=== PATIENT | female | born 1960 | race Caucasian/White ===

== ENCOUNTER 2017-03-24 17:43 | Emergency (ER) | payer OTHER ==
--- NOTE | 2017-03-24 18:15 | ED CLINICAL REPORT ---
Clinical Report - Physicians/Mid Levels [facility] [address] [place] [address] 03/24/2017 17:44 Patient: LIU RUBI Time Seen: 1800; upon arrival, initial patient contact, initial documentation, patient care assumed. Arrived- By private vehicle. Historian- patient. HISTORY OF PRESENT ILLNESS Chief Complaint: UPPER EXTREMITY PAIN. Severity is described as being severe. The quality is noted to be "pain" and similar to prior episodes. It is described as radiating to the right neck. This started about 2 - 3 months ago and is still present. It has been constant. Symptoms located in the area of the right shoulder and right arm. No chest pain, difficulty breathing, swelling, sensory loss or motor loss. No repetitive hand use at work. She has not had redness. Patient denies an injury. Similar symptoms previously: As bad. ( went to dr for issues about 2 mos ago, given pain meds and was told she had nerve issue, has appt on 04/05 to see specialist). Recent medical care: Not recently seen/assessed. REVIEW OF SYSTEMS The patient has had a headache. No abdominal pain. All systems otherwise negative, except as recorded above. PAST HISTORY See nurses notes. PROBLEMS: Migraine Headache. Hypothyroidism. Back Pain. --18:10 Madison Mcmillan RDina. ADDITIONAL SURGERIES: Ankle. Cholecystectomy. Oophorectomy. --18:10 Madison Mcmillan, R.N. SOCIAL HISTORY Never smoker. Regular alcohol use. No drug use. No recent travel. Is a local resident. FAMILY HISTORY Negative. ADDITIONAL NOTES The nursing notes have been reviewed with agreement regarding the chief complaint, HPI, ROS, PMH and patient medications and allergies. PHYSICAL EXAM Vital Signs: 03/24/2017 17:59 BP: 154/78. HR: 68. RR: 18. O2 saturation: 100%. Temp: 98.3 F. Pain level now: 07/24. Have been reviewed as normal and appear to be correct. Appearance: Alert. Oriented X3. No acute distress. Eyes: Pupils equal, round and reactive to light. Eyes normal inspection. Neck: Normal inspection. Neck supple. CVS: Normal heart rate and rhythm. Heart sounds normal. Respiratory: No respiratory distress. Breath sounds normal. Abdomen: Soft and nontender. No organomegaly. Back: Normal inspection. No tenderness. ROM normal. Skin: Skin intact. Skin warm and dry. Normal skin color. Normal skin turgor. Extremities: Upper extremities normal to inspection. Upper extremities exhibit normal ROM. Upper extremities nontender. No upper extremity edema. Extremities otherwise negative. Neuro: Oriented X 3. No motor deficit. No sensory deficit. PROGRESS AND PROCEDURES Course of Care: 18:18 03/24/17. pt has pamela for frequent large quantity of narcs, last rx 03/05 Oxycodone 5mg #90, see report for full details. Patient counseled in person regarding the patient's stable condition and diagnosis. Differential Diagnosis: I considered stress fracture, multiple myeloma, degenerative joint disease, arthritis, rheumatoid arthritis, septic, gout, pseudogout, tendonitis, myositis, fasciitis and bursitis as a possible cause of upper extremity pain in this patient. This is a partial list of diagnoses considered. (nerve impingement syndrome). Above considerations are based on history and physical exam. Differential diagnosis was discussed with patient. Disposition: Discharged home in good and improved condition (18:15). Condition: good and stable. CLINICAL IMPRESSION Upper extremity pain involving the right shoulder and right upper arm. Acute, poorly controlled headache. INSTRUCTIONS Warnings: GENERAL WARNINGS: Return or contact your physician immediately if your condition worsens or changes unexpectedly, if not improving as expected, or if other problems arise. Specifically return if problem worsens. Prescription Medications: Naproxen 500 mg tablets: take 1 orally every 12 hours as needed for pain. Dispense twenty (20). No refills. Medrol Dosepak: take according to package directions. Dispense one (1) dosepak. No refills. Substitution is permissible. Follow-up: Follow up with your doctor in about one week as scheduled. Summary of care provided to patient. Understanding of the discharge instructions verbalized by patient. (Electronically signed by Irina Gonzalez A.R.N.P. 03/24/2017 23:50)
--- NOTE | 2017-03-24 18:15 | ED ORDER SUMMARY ---
..... Patient: LIU RUBI OrderSheet [facility] VisitID: [id number] [address] [place] [address] 56y, F Registration Date/Time: 03/24/2017 ORDER SHEET Weight: 71.2 kg (stated) Allergies: Penicillin, morphine GENERAL ORDERS: MEDICATION ORDERS: Toradol IM 60 mg (NOW) (18:13 03/24/2017 HBivens A.R.N.P.) (Ack 18:15 CBradburn R.N.) (18:26 CBradburn R.N.) Benadryl IM 50 mg (NOW) (18:14 03/24/2017 HBivens A.R.N.P.) (Ack 18:15 CBradburn R.N.) (18:27 CBradburn R.N.) - (Reglan 10mg im stat) (18:14 03/24/2017 HBivens A.R.N.P.) (Ack 18:15 CBradburn R.N.) (18:27 CBradburn R.N.) IV FLUIDS: ORDER SHEET NOTES: [Electronically signed by Saira Arciniega R.N. (19:58 03/24/2017)] [Electronically signed by Irina Gonzalez A.R.N.P. (23:50 03/24/2017)] [Electronically locked/signed by Saira Arciniega R.N. (19:58 03/24/2017)]
--- NOTE | 2017-03-24 18:15 | ED ORDER SUMMARY ---
..... Patient: LIU RUBI OrderSheet [facility] VisitID: [id number] [address] [place] [address] 56y, F Registration Date/Time: 03/24/2017 ORDER SHEET Weight: 71.2 kg (stated) Allergies: Penicillin, morphine GENERAL ORDERS: MEDICATION ORDERS: Toradol IM 60 mg (NOW) (18:13 03/24/2017 HBivens A.R.N.P.) (Ack 18:15 CBradburn R.N.) (18:26 CBradburn R.N.) Benadryl IM 50 mg (NOW) (18:14 03/24/2017 HBivens A.R.N.P.) (Ack 18:15 CBradburn R.N.) (18:27 CBradburn R.N.) - (Reglan 10mg im stat) (18:14 03/24/2017 HBivens A.R.N.P.) (Ack 18:15 CBradburn R.N.) (18:27 CBradburn R.N.) IV FLUIDS: ORDER SHEET NOTES: [Electronically signed by Saira Arciniega R.N. (19:58 03/24/2017)] [Electronically signed by Irina Gonzalez A.R.N.P. (23:50 03/24/2017)] [Electronically locked/signed by Saira Arciniega R.N. (19:58 03/24/2017)]
--- NOTE | 2017-03-24 18:15 | ED NURSING NOTES ---
Clinical Report - Nurses [facility] [address] [place] [address] 03/24/2017 17:44 Patient: LIU RUBI TRIAGE Triage time 17:59. Acuity: LEVEL 3. Chief Complaint: RIGHT UPPER EXTREMITY PAIN and TINGLING. --18:11 Madison Mcmillan R.N. 17:59 03/24/17. BP: 154/78 taken on the left arm, while lying. HR: 68 (regular). RR: 18. O2 saturation: 100% on room air. Temp: 98.3 F (oral). Pain level now: 07/24. --18:11 Madison Mcmillan R.N. Weight: 71.2 kg stated. Height/Length: 64 inches Per Patient. BMI: 27. --18:00 Madison Mcmillan R.N. Medications Atorvastatin Calcium Oral (Tablet 20 mg) 1 tablet, daily. --18:02 Madison Mcmillan R.N. FLUoxetine HCl Oral (Capsule 20 mg) 1 capsule, daily. --18:02 Madison Mcmillan R.N. Levothyroxine Sodium Oral (Tablet 75 mcg) 1 tablet, daily. --18:03 Madison Mcmillan R.N. Levocetirizine Dihydrochloride Oral (Tablet 5 mg) 2 tablets, daily. --18:03 Madison Mcmillan R.N. Imitrex Oral (Tablet 100 mg) 1 tablet, 4x a day as needed. --18:03 Madison Mcmillan R.N. Meloxicam Oral (Tablet 7.5 mg) 1 tablet, daily. --18:04 Madison Mcmillan R.N. Methocarbamol Oral (Tablet 500 mg) 1 tablet, 4x a day as needed. --18:04 Madison Mcmillan R.N. Ketorolac Tromethamine Oral (Tablet 10 mg) 1/2 tablet, at bedtime. --18:05 Madison Mcmillan R.N. OxyCODONE HCl Oral (Tablet 5 mg) 1 tablet, 3x a day as needed. --18:07 Madison Mcmillan R.N. Allergies Penicillin. Definite Severe(swelling) --18:06 Madison Mcmillan R.N. morphine. Definite Severe(anxiety) --18:06 Madison Mcmillan R.N. History Arrived by private vehicle. Historian: patient. Accompanied by family. Primary physician (monica). No injury occurred. This occurred yesterday. ( pt reports pain and tingling in right arm thinks possible nerve injury by moving wrong, now causing a "massive" headache). PAST MEDICAL HX: Tetanus status: up-to-date. Immunizations: up-to-date. The patient is post-menopausal. SOCIAL HX: Never smoker. Alcohol use. (about 2 times a week). No drug use. No infectious disease exposure. ABUSE ASSESSMENT: No report of abuse. SELF HARM ASSESSMENT: A self harm assessment was performed. The patient answered "no" to the question "Have you recently felt down, depressed, or hopeless?", "Have you noticed less interest or pleasure in doing things?", "Do you have thoughts of harming or killing yourself?", "Are you here because you tried to hurt yourself?", "Have you ever tried to hurt yourself before today?", "Have you recently had thoughts about harming or killing others?" and "Do you have any dangerous items in your possession?". FALL RISK ASSESSMENT: Fall risk assessment completed. No fall risk identified. NUTRITIONAL RISK ASSESSMENT: The nutritional risk assessment revealed no deficiencies. FUNCTIONAL ASSESSMENT: Functional assessment: no impairments noted. LEARNING NEEDS ASSESSMENT: The learning needs assessment revealed no barriers. SKIN INTEGRITY ASSESSMENT: Skin integrity risk assessment completed. No skin integrity risk identified. --18:11 Madison Mcmillan R.N. PROBLEMS: Migraine Headache. Hypothyroidism. Back Pain. --18:10 Madison Mcmillan R.N. ADDITIONAL SURGERIES: Ankle. Cholecystectomy. Oophorectomy. --18:10 Madison Mcmillan R.N. Interventions ID band on patient. --18:11 Madison Mcmillan R.N. PHYSICAL ASSESSMENT Ambulatory to room. GENERAL / NEURO / PSYCH: Oriented X 4. Alert. Appears in no acute distress. Appears in pain. EXTREMITIES: Extremities exhibit normal ROM. Neuro-vascular status intact to the extremity. No upper extremity edema. Skin is non-tender on the extremities. Right arm: tenderness. SKIN: Skin intact. Skin is warm and dry. --18:12 Madison Mcmillan R.N. NURSING PROGRESS NOTES Patient gowned. Two patient identifiers checked. Call light placed in reach. Side rails up x 1. Bed placed in lowest position. Brakes of bed on. Patient ready for evaluation- chart flagged. --18:12 Madison Mcmillan R.N. 18:20 03/24/2017 Benadryl (DiphenhydrAMINE HCl) IM 50 mg given. Given in the right deltoid. Allergies verified, confirmed 5 rights and sedative warning given to the patient and patient's family. --18:27 Madison Mcmillan R.N. 18:21 03/24/2017 Toradol (Ketorolac Tromethamine) IM 60 mg given. Given in the right gluteus lashell. Allergies verified and confirmed 5 rights. --18:26 Madison Mcmillan R.N. 18:22 03/24/2017 Reglan (Metoclopramide HCl) IM 10 mg given. Given in the right gluteus lashell. Allergies verified and confirmed 5 rights. --18:27 Madison Mcmillan R.N. 18:35. ( First contact with pt. Pt and daughter given dc instructions and rx. no questions voiced). --19:57 Saira Arciniega R.N. DISPOSITION / DISCHARGE 1840. Condition at departure: improved and stable. No learning barriers present. Discharge instructions provided and reviewed with the patient and family. Reviewed medication(s) (medrol dospak, naproxyn). Patient and family verbalized understanding. Written instructions provided in Greek. The patient was discharged home and accompanied by daughter. She left the Emergency Department ambulatory and via private vehicle. Driving (daughter). --19:56 Saira Arciniega R.N. 18:40 03/24/17. BP: 147/77. HR: 63. RR: 18. O2 saturation: 99%. Temp: deferred. Pain level now: 06/24. --19:56 Saira Arciniega R.N. Locked/Released at 03/24/2017 19:58 by Saira Arciniega R.N.
--- NOTE | 2017-03-24 23:50 | ED MED RECONCILIATION SUMMARY ---
Patient: LIU RUBI Medication Reconciliation Report VisitID: [id number] [address] [place] [address] 56y, F Registration Date/Time: 03/24/2017 Weight: 71.2 kg Height/Length: 64 in. BMI: 27.0 ALLERGIES: morphine, Penicillin The patient's Home Medications are listed below: THE FOLLOWING MEDICATIONS NEED TO BE RECONCILED: Atorvastatin Calcium Oral (20 mg) 1 tablet, daily FLUoxetine HCl Oral (20 mg) 1 capsule, daily Imitrex Oral (100 mg) 1 tablet, 4x a day Ketorolac Tromethamine Oral (10 mg) 1/2 tablet, at bedtime Levocetirizine Dihydrochloride Oral (5 mg) 2 tablets, daily Levothyroxine Sodium Oral (75 mcg) 1 tablet, daily Meloxicam Oral (7.5 mg) 1 tablet, daily Methocarbamol Oral (500 mg) 1 tablet, 4x a day OxyCODONE HCl Oral (5 mg) 1 tablet, 3x a day The source(s) of the original Home Medication information: Not obtained. The following Medications were given to the patient in the Emergency Department: Toradol [IM] IM 60 mg, administered: 03/24/2017 6:21:00 PM Benadryl [IM] IM 50 mg, administered: 03/24/2017 6:20:00 PM Reglan [IM] IM 10 mg, administered: 03/24/2017 6:22:00 PM The following Medications were prescribed to the patient: Naproxen 500 mg tablets: take 1 orally every 12 hours as needed for pain. Dispense twenty (20). No refills. -- Irina Gonzalez A.R.N.P. Medrol Dosepak: take according to package directions. Dispense one (1) dosepak. No refills. Substitution is permissible. -- Irina Gonzalez A.R.N.P.
--- NOTE | 2017-03-24 23:50 | ED MAR SUMMARY ---
..... Medication Administration Record [facility] [address] [place] [address] Patient: LIU RUBI Visit ID: [id number] 56y, F Weight: 71.2 kg Height/Length: 64 in BMI: 27 ALLERGIES: morphine, Penicillin Given 18:20 03/24/2017 Madison Mcmillan R.N. Medication Administered: BENADRYL [IM] (DIPHENHYDRAMINE HCL), Dose: 50 mg IM. Medication Ordered: Benadryl IM 50 mg (NOW). Given 18:21 03/24/2017 Madison Mcmillan R.N. Medication Administered: TORADOL [IM] (KETOROLAC TROMETHAMINE), Dose: 60 mg IM. Medication Ordered: Toradol IM 60 mg (NOW). Given 18:22 03/24/2017 Madison Mcmillan RGurjit Medication Administered: REGLAN [IM] (METOCLOPRAMIDE HCL), Dose: 10 mg IM. Medication Ordered: - (Reglan 10mg im stat).
--- NOTE | 2017-03-24 23:50 | ED MED RECONCILIATION SUMMARY ---
Patient: LIU RUBI Medication Reconciliation Report [facility] VisitID: [id number] [address] [place] [address] 56y, F Registration Date/Time: 03/24/2017 Weight: 71.2 kg Height/Length: 64 in. BMI: 27.0 ALLERGIES: morphine, Penicillin The patient's Home Medications are listed below: THE FOLLOWING MEDICATIONS NEED TO BE RECONCILED: Atorvastatin Calcium Oral (20 mg) 1 tablet, daily FLUoxetine HCl Oral (20 mg) 1 capsule, daily Imitrex Oral (100 mg) 1 tablet, 4x a day Ketorolac Tromethamine Oral (10 mg) 1/2 tablet, at bedtime Levocetirizine Dihydrochloride Oral (5 mg) 2 tablets, daily Levothyroxine Sodium Oral (75 mcg) 1 tablet, daily Meloxicam Oral (7.5 mg) 1 tablet, daily Methocarbamol Oral (500 mg) 1 tablet, 4x a day OxyCODONE HCl Oral (5 mg) 1 tablet, 3x a day The source(s) of the original Home Medication information: Not obtained. The following Medications were given to the patient in the Emergency Department: Toradol [IM] IM 60 mg, administered: 03/24/2017 6:21:00 PM Benadryl [IM] IM 50 mg, administered: 03/24/2017 6:20:00 PM Reglan [IM] IM 10 mg, administered: 03/24/2017 6:22:00 PM The following Medications were prescribed to the patient: Naproxen 500 mg tablets: take 1 orally every 12 hours as needed for pain. Dispense twenty (20). No refills. -- Irina Gonzalez A.R.N.P. Medrol Dosepak: take according to package directions. Dispense one (1) dosepak. No refills. Substitution is permissible. -- Irina Gonzalez A.R.N.P.
--- NOTE | 2017-03-24 23:50 | ED MAR SUMMARY ---
..... Medication Administration Record [facility] [address] [place] [address] Patient: LIU RUBI Visit ID: [id number] 56y, F Weight: 71.2 kg Height/Length: 64 in BMI: 27 ALLERGIES: morphine, Penicillin Given 18:20 03/24/2017 Madison Mcmillan R.N. Medication Administered: BENADRYL [IM] (DIPHENHYDRAMINE HCL), Dose: 50 mg IM. Medication Ordered: Benadryl IM 50 mg (NOW). Given 18:21 03/24/2017 Madison Mcmillan R.N. Medication Administered: TORADOL [IM] (KETOROLAC TROMETHAMINE), Dose: 60 mg IM. Medication Ordered: Toradol IM 60 mg (NOW). Given 18:22 03/24/2017 Madison Mcmillan RGurjit Medication Administered: REGLAN [IM] (METOCLOPRAMIDE HCL), Dose: 10 mg IM. Medication Ordered: - (Reglan 10mg im stat).
--- NOTE | 2017-03-24 23:50 | ED DISCHARGE INSTRUCTIONS ---
Patient: LIU RUBI General Instructions [facility] VisitID: [id number] [address] [place] [address] 56y, F Registration Date/Time: 03/24/2017 Upper extremity pain involving the right shoulder and right upper arm. Acute, poorly controlled headache. INSTRUCTIONS Warnings: GENERAL WARNINGS: Return or contact your physician immediately if your condition worsens or changes unexpectedly, if not improving as expected, or if other problems arise. Specifically return if problem worsens. Prescription Medications: Naproxen 500 mg tablets: take 1 orally every 12 hours as needed for pain. Dispense twenty (20). No refills. Medrol Dosepak: take according to package directions. Dispense one (1) dosepak. No refills. Substitution is permissible. Follow-up: Follow up with your doctor in about one week as scheduled. Summary of care provided to patient. Understanding of the discharge instructions verbalized by patient. ADDITIONAL INFORMATION Osteoarthritis Osteoarthritis (also called Degenerative Joint Disease) is the most common form of arthritis in adults over 50. It is not the same as Rheumatoid Arthritis. The exact cause is not known but may be related to excess wear and tear on the joint over a long period of time. Prior injury to that joint, or repeated stress on a joint can also cause this type of arthritis. Osteoarthritis most often affects the hands, knees, spine and hips (in that order). The most common symptoms are joint stiffness, pain and swelling. Home Care: When a joint is more sore than usual, rest that joint for a day or two. Heat is very helpful. This can be provided by taking hot baths, applying a heating pad for up to 30 minutes at a time. Because symptoms are usually worse in the morning, many patients like to take a hot bath just after awakening to relax the muscle and soothe the joints. Exercise is the most important part of home treatment for osteoarthritis. This prevents the muscles and ligaments around the joint from becoming weak and helps maintain the full range of joint motion. This limits further damage to the joint. If you are overweight, this puts a lot of extra strain on weight-bearing joints of the lower back, hips, knees, feet and ankles. Losing weight will improve your arthritis symptoms in these joints. Talk to your doctor about a safe and effective weight loss program for yourself. Anti-inflammatory medicine such as ibuprofen (Advil, Motrin) or naproxen (Aleve) is often used to treat this condition. If this alone is not helping, your doctor may prescribe a stronger medicine. If narcotic pain medicines have been prescribed, they should be used in addition to anti-inflammatory drugs and only for severe pain. Follow Up with your doctor as advised by our staff. Get Prompt Medical Attention if any of the following occur: Redness or swelling of a painful joint Fever of 100.4F (38C) or higher, or as directed by your healthcare provider Worsening joint pain Shoulder Pain (Uncertain Cause) Shoulder pain often arises from the structures that surround the shoulder joint (the joint capsule, ligaments, tendons, muscles, and bursa). The joint itself contains cartilage that can become worn out or injured and can also be a source of pain. The correct treatment requires knowing the cause of the pain. Sometimes it is difficult to diagnose the exact cause of shoulder pain and referral to a specialist may be required. You may eventually need special tests such as CT scan, MRI, or arthroscopy (a procedure that uses special instruments to look inside the joint through a small incision). Shoulder pain can be treated initially with a sling or shoulder immobilizer and anti-inflammatory medicines such as ibuprofen. Special shoulder exercises may be needed. Follow-up with a specialist is important when pain is severe or does not go away after a few weeks. Home Care: If a sling was provided, leave it in place for the time advised by your doctor. If you are unsure how long to wear it, ask for advice. If the sling becomes loose, adjust it so that your forearm is level with the ground and the shoulder feels well supported. Apply an ice pack (ice cubes in a plastic bag, wrapped in a towel) over the injured area for 20 minutes every 1 to 2 hours the first day for pain relief. Continue this 3 to 4 times a day until the pain and swelling go away. You may use acetaminophen (Tylenol) or ibuprofen (Motrin, Advil) to control pain, unless another pain medicine was prescribed. (NOTE: If you have chronic liver or kidney disease or ever had a stomach ulcer or GI bleeding, talk with your doctor before using these medicines.) Shoulder pain may seem worse at night, when there is less to distract you from the pain. If you sleep on your side, try to keep your weight off your painful shoulder. Propping pillows behind you may prevent you from rolling over onto that shoulder during sleep. Shoulder joints become stiff if left in a sling for too long. [id number] exercises should usually be started within the first 10 days after injury. Consult your doctor on what type of exercises to do and how soon to start. You may remove the sling to shower or bathe. Follow Up with your doctor, or as advised by our staff, if you are not starting to improve within the next 5 days. Get Prompt Medical Attention if any of the following occur: Pain or swelling increases Hand or fingers becomes cold, blue, numb, or tingly Large amount of bruising of the shoulder or upper arm Headache [Unspecified] The cause of your headache today is not clear, but it does not appear to be the sign of any serious illness. Under stress, some people tense the muscles of their shoulder, neck and scalp without knowing it. If this condition lasts long enough, a TENSION HEADACHE can occur. A MIGRAINE HEADACHE is caused by changes in blood flow to the brain. A migraine attack may be triggered by emotional stress, hormone changes during the menstrual cycle, oral contraceptives, alcohol use, certain foods containing tyramine, eye strain, weather changes, missing meals, lack of sleep or oversleeping. Other causes of headache include a viral illness with high fever, head injury with concussion, sinus, ear or throat infection, dental pain and TMJ (jaw joint) pain. More serious but less common causes of headache include stroke, brain hemorrhage, brain tumor, meningitis and encephalitis. Home Care: If you were given pain medicine for this headache, do not drive yourself home. Arrange for a ride, instead. When you get home, try to sleep. You should feel much better when you wake up. Apply heat to the back of your neck to relieve neck muscle spasm. Migraine headaches may respond best to an ice pack on the forehead or at the base of the skull. If you are having nausea or vomiting, follow a light diet until your headache is relieved. If you have a migraine type headache, use sunglasses when in the daylight or around bright indoor lighting until symptoms improve. Bright glaring light can worsen this kind of headache. Follow Up with your doctor if the headache is not better within the next 24 hours. If you have frequent headaches you should discuss a treatment plan with your primary care doctor. By being aware of the earliest signs of headache, and starting treatment right away, you may be able to stop the pain yourself. Get Prompt Medical Attention if any of the following occur: Worsening of your head pain or no improvement within 24 hours Repeated vomiting (unable to keep liquids down) Fever of 100.4F (38C) or higher, or as directed by your healthcare provider Stiff neck Extreme drowsiness, confusion or fainting Dizziness, vertigo (dizziness with spinning sensation) Weakness of an arm or leg or one side of the face Difficulty with speech or vision Naproxen Sodium Oral tablet What is this medicine? NAPROXEN (na PROX en) is a non-steroidal anti-inflammatory drug (NSAID). It is used to reduce swelling and to treat pain. This medicine may be used for dental pain, headache, or painful monthly periods. It is also used for painful joint and muscular problems such as arthritis, tendinitis, bursitis, and gout. How should I use this medicine? Take this medicine by mouth with a glass of water. Follow the directions on the prescription label. Take it with food if your stomach gets upset. Try to not lie down for at least 10 minutes after you take it. Take your medicine at regular intervals. Do not take your medicine more often than directed. Long-term, continuous use may increase the risk of heart attack or stroke. A special MedGuide will be given to you by the pharmacist with each prescription and refill. Be sure to read this information carefully each time. Talk to your nursing coordinator regarding the use of this medicine in children. Special care may be needed. What side effects may I notice from receiving this medicine? Side effects that you should report to your doctor or health regular senior care provider as soon as possible: black or bloody stools, blood in the urine or vomit blurred vision chest pain difficulty breathing or wheezing nausea or vomiting severe stomach pain skin rash, skin redness, blistering or peeling skin, hives, or itching slurred speech or weakness on one side of the body swelling of eyelids, throat, lips unexplained weight gain or swelling unusually weak or tired yellowing of eyes or skin Side effects that usually do not require medical attention (report to your doctor or health regular senior care provider if they continue or are bothersome): constipation headache heartburn What may interact with this medicine? alcohol aspirin cidofovir diuretics lithium methotrexate other drugs for inflammation like ketorolac or prednisone pemetrexed probenecid warfarin What if I miss a dose? If you miss a dose, take it as soon as you can. If it is almost time for your next dose, take only that dose. Do not take double or extra doses. Where should I keep my medicine? Keep out of the reach of children. Store at room temperature between 15 and 30 degrees C (59 and 86 degrees F). Keep container tightly closed. Throw away any unused medicine after the expiration date. What should I tell my health care provider before I take this medicine? They need to know if you have any of these conditions: asthma cigarette smoker drink more than 3 alcohol containing drinks a day heart disease or circulation problems such as heart failure or leg edema (fluid retention) high blood pressure kidney disease liver disease stomach bleeding or ulcers an unusual or allergic reaction to naproxen, aspirin, other NSAIDs, other medicines, foods, dyes, or preservatives or trying to get breast-feeding What should I watch for while using this medicine? Tell your doctor or health regular senior care provider if your pain does not get better. Talk to your doctor before taking another medicine for pain. Do not treat yourself. This medicine does not prevent heart attack or stroke. In fact, this medicine may increase the chance of a heart attack or stroke. The chance may increase with longer use of this medicine and in people who have heart disease. If you take aspirin to prevent heart attack or stroke, talk with your doctor or health regular senior care provider. Do not take other medicines that contain aspirin, ibuprofen, or naproxen with this medicine. Side effects such as stomach upset, nausea, or ulcers may be more likely to occur. Many medicines available without a prescription should not be taken with this medicine. This medicine can cause ulcers and bleeding in the stomach and intestines at any time during treatment. Do not smoke cigarettes or drink alcohol. These increase irritation to your stomach and can make it more susceptible to damage from this medicine. Ulcers and bleeding can happen without warning symptoms and can cause . You may get drowsy or dizzy. Do not drive, use machinery, or do anything that needs mental alertness until you know how this medicine affects you. Do not stand or sit up quickly, especially if you are an older patient. This reduces the risk of dizzy or fainting spells. This medicine can cause you to bleed more easily. Try to avoid damage to your teeth and gums when you brush or floss your teeth. Methylprednisolone Oral tablet What is this medicine? METHYLPREDNISOLONE (meth ill pred NISS oh lone) is a corticosteroid. It is commonly used to treat inflammation of the skin, joints, lungs, and other organs. Common conditions treated include asthma, allergies, and arthritis. It is also used for other conditions, such as blood disorders and diseases of the adrenal glands. How should I use this medicine? Take this medicine by mouth with a drink of water. Follow the directions on the prescription label. Take it with food or milk to avoid stomach upset. If you are taking this medicine once a day, take it in the morning. Do not take more medicine than you are told to take. Do not suddenly stop taking your medicine because you may develop a severe reaction. Your doctor will tell you how much medicine to take. If your doctor wants you to stop the medicine, the dose may be slowly lowered over time to avoid any side effects. Talk to your nursing coordinator regarding the use of this medicine in children. Special care may be needed. What side effects may I notice from receiving this medicine? Side effects that you should report to your doctor or health regular senior care provider as soon as possible: allergic reactions like skin rash, itching or hives, swelling of the face, lips, or tongue eye pain, decreased or blurred vision, or bulging eyes fever, sore throat, sneezing, cough, or other signs of infection, wounds that will not heal increased thirst mental depression, mood swings, mistaken feelings of self importance or of being mistreated pain in hips, back, ribs, arms, shoulders, or legs swelling of the ankles, feet, hands trouble passing urine or change in the amount of urine Side effects that usually do not require medical attention (report to your doctor or health regular senior care provider if they continue or are bothersome): confusion, excitement, restlessness headache nausea, vomiting skin problems, acne, thin and shiny skin weight gain What may interact with this medicine? Do not take this medicine with any of the following medications: mifepristone This medicine may also interact with the following medications: tacrolimus vaccines warfarin What if I miss a dose? If you miss a dose, take it as soon as you can. If it is almost time for your next dose, talk to your doctor or health regular senior care provider. You may need to miss a dose or take an extra dose. Do not take double or extra doses without advice. Where should I keep my medicine? Keep out of the reach of children. Store at room temperature between 20 and 25 degrees C (68 and 77 degrees F). Throw away any unused medicine after the expiration date. What should I tell my health care provider before I take this medicine? They need to know if you have any of these conditions: Fruitland's syndrome diabetes glaucoma heart problems or disease high blood pressure infection such as herpes, measles, tuberculosis, or chickenpox kidney disease liver disease mental problems myasthenia gravis osteoporosis seizures stomach ulcer or intestine disease including colitis and diverticulitis thyroid problem an unusual or allergic reaction to lactose, methylprednisolone, other medicines, foods, dyes, or preservatives or trying to get breast-feeding What should I watch for while using this medicine? Visit your doctor or health regular senior care provider for regular checks on your progress. If you are taking this medicine for a long time, carry an identification card with your name and address, the type and dose of your medicine, and your doctor's name and address. The medicine may increase your risk of getting an infection. Stay away from people who are sick. Tell your doctor or health regular senior care provider if you are around anyone with measles or chickenpox. If you are going to have surgery, tell your doctor or health regular senior care provider that you have taken this medicine within the last twelve months. Ask your doctor or health regular senior care provider about your diet. You may need to lower the amount of salt you eat. The medicine can increase your blood sugar. If you are a diabetic check with your doctor if you need help adjusting the dose of your diabetic medicine. You have been given the following additional information: Osteoarthritis Shoulder Pain (Uncertain Cause) Headache, Unspecified Naproxen Sodium Oral tablet Methylprednisolone Oral tablet (Electronically signed by Irina Gonzalez A.R.N.P. 03/24/2017 23:50)
== END 2017-03-24 18:40 | disposition home or self-care (01) ==
LOC: ED SRH 17:43
DX: M25.511 Pain in right shoulder (principal); M79.621 Pain in right upper arm; R51 Headache; E07.9 Disorder of thyroid, unspecified; Z79.899 Other long term (current) drug therapy; Z88.0 Allergy status to penicillin; Z88.5 Allergy status to narcotic agent

== ENCOUNTER 2017-04-02 08:36 | Outpatient (CLI) | payer OTHER ==
--- NOTE | 2017-04-02 10:51 | DIAGNOSTIC IMAGING REPORT ---
PROCEDURE: MR CERVICAL SPINE W/O CONT INDICATION: CERVICAL RADICULOPATHY RT SIDE/ RT SHOULDER PAIN TECHNIQUE: Noncontrast T1, T2, and STIR sagittal images. T2 and gradient axial images. COMPARISON: None. FINDINGS: Normal alignment without fracture or suspicious osseous lesions. Mild degenerative changes and narrowing of the C5-6 and C6-7 disc spaces with disc bulging. Straightening of the cervical spine. Craniocervical junction and cervical cord are unremarkable. Prominent artifact anteriorly which does not obscure the anatomy of interest. C2-3: Normal appearance. C3-4: Normal appearance. C4-5: Small broad-based disc bulge without significant foraminal stenosis. No spinal stenosis. C5-6: Moderate left foraminal disc protrusion superimposed on a mildly broad-based disc bulge resulting in moderate left foraminal stenosis. There is no significant narrowing of the right foramen. No spinal stenosis C6-7: Large left foraminal disc protrusion superimposed on a broad-based disc bulge resulting in severe left foraminal stenosis. There is mild spinal stenosis. C7-T1: Normal appearance. IMPRESSION: 1. Mild degenerative changes with straightening of the cervical spine suggestive of muscular spasm. 2. C5-6 left foraminal disc protrusion with moderate left foraminal stenosis 3. C6-7 large left foraminal disc protrusion with severe left foraminal and mild spinal stenosis
== END 2017-04-03 15:16 | disposition home or self-care (01) ==
LOC: MRI SRH 08:36
DX: M50.222 Other cervical disc displacement at C5-C6 level (principal); M50.223 Other cervical disc displacement at C6-C7 level; M48.02 Spinal stenosis, cervical region